=== PATIENT | female | born 1995 | race Two or more races ===

== ENCOUNTER 2019-04-12 22:12 | Inpatient (IN) | payer OTHER ==
[2019-04-12] MEDS ORDERED: Oxytocin/Lactated Ringers 10 UNIT/1,000 ML BAG IV ONE (22:43)
[2019-04-12] MEDS ORDERED: Nalbuphine 10 MG/1 ML Vial IVPUSH PRN (22:56)
[2019-04-12] MEDS ORDERED: Sodium Chloride 0.9% 10 ML Syringe FLUSH PRN (22:56)
[2019-04-12] MEDS ORDERED: Lactated Ringers 1,000 ML IV SCH (23:00)
--- NOTE | 2019-04-12 23:03 | PCM.LDHP ---
L&D History of Present Illness - General Date of Service: 04/12/19 Admit Problem/Dx: Admission Diagnosis/Problem Admission Diagnosis/Problem care Source of Information: Patient History Limitations: Reports: No Limitations - History of Present Illness Introduction:: 23 year old at 41 weeks here in active labor. PNC with me complicated by incarceration. H&P Review of Systems - Review of Systems: Review Of Systems: See Below General: Reports: No Symptoms HEENT: Reports: No Symptoms Pulmonary: Reports: No Symptoms Cardiovascular: Reports: No Symptoms Gastrointestinal: Reports: No Symptoms Genitourinary: Reports: No Symptoms Musculoskeletal: Reports: No Symptoms Skin: Reports: No Symptoms Psychiatric: Reports: No Symptoms Neurological: Reports: No Symptoms Hematologic/Lymphatic: Reports: No Symptoms Immunologic: Reports: No Symptoms L&D Exam - Exam Exam: See Below - OB Specific Contraction Intensity: Strong Movement: Active Heart Tones: Present Heart Rate (FHR) Variability: Moderate (6-25 bmp) Presentation: Vertex - Dumont Score Dumont Score Cervix Position: Midposition Dmuont Score Consistency: Soft Dumont Score Effacement: >80% Dumont Score Infant's Station: -2 - Exam General: Alert, Oriented HEENT: PERRLA, Conjunctiva Clear, EACs Clear, EOMI, Hearing Intact, Mucosa Moist & [place], Nares Patent, Normal Nasal Septum, Posterior Pharynx Clear, TMs Clear Neck: Supple, Trachea Midline Lungs: Clear to Auscultation, Normal Respiratory Effort Cardiovascular: Regular Rate, Regular Rhythm GI/Abdominal Exam: Normal Bowel Sounds, Soft, Non-Tender, No Organomegaly, No Distention, No Abnormal Bruit, No Mass, Pelvis Stable Genitourinary: Normal external exam, Normal bimanual exam, Normal speculum exam Back Exam: Normal Inspection, Full Range of Motion Extremities: Normal Inspection, Normal Range of Motion, Non-Tender, No Pedal Edema, Normal Capillary Refill Skin: Warm, Dry, Intact Neurological: Cranial Nerves Intact, Reflexes Equal Bilateral Psychiatric: Alert, Normal Affect, Normal Mood Problem List Initiated/Reviewed/Updated: Yes Orders Last 24hrs: Active Orders 24 hr Category Date Time Status Patient Status Manage Transfer [TRANSFER] Routine ADT 04/12/19 22:57 Ordered Activity as Tolerated [RC] PFP Care 04/12/19 22:56 Active Communication Order [RC] ASDIRECTED Care 04/12/19 22:56 Active Heart Tones [RC] ASDIRECTED Care 04/12/19 22:56 Active Non Stress Test [RC] PER UNIT ROUTINE Care 04/12/19 22:56 Active Notify Provider [RC] PFP Care 04/12/19 22:56 Active Notify Provider [RC] PRN Care 04/12/19 22:56 Active Peripheral IV Care [RC] . DIRECTED Care 04/12/19 22:56 Active Vital Signs [RC] PER UNIT ROUTINE Care 04/12/19 22:56 Active RAPID PLASMA REAGIN,RPR [CHEM] Routine Lab 04/12/19 22:56 Ordered Lactated Ringers [Ringers, Lactated] 1,000 ml Med 04/12/19 23:00 Ordered IV ASDIRECTED Nalbuphine [Nubain] Med 04/12/19 22:56 Ordered 10 mg IVPUSH Q2H PRN Sodium Chloride 0.9% [Saline Flush] Med 04/12/19 22:56 Ordered 10 ml FLUSH ASDIRECTED PRN Electronic Heart Tones Ext w TOCO [WOMSER] Oth 04/12/19 22:56 Ordered Routine Electronic Heart Tones Internal [WOMSER] Per Unit Oth 04/12/19 22:56 Ordered Routine Peripheral IV Insertion Adult [OM.PC] Routine Oth 04/12/19 22:56 Ordered Resuscitation Status Routine Resus Stat 04/12/19 22:56 Ordered Medication Orders Lactated Ringer's (Ringers, Lactated) 1,000 mls @ 100 mls/hr IV ASDIRECTED JULIETTE Nalbuphine HCl (Nubain) 10 mg IVPUSH Q2H PRN PRN Reason: Pain Sodium Chloride (Saline Flush) 10 ml FLUSH ASDIRECTED PRN PRN Reason: Keep Vein Open Assessment/Plan Comment:: Term labor with rapid
--- NOTE | 2019-04-12 23:09 | PCM.SN ---
- Free Text/Narrative Note: Stage I - Patient presented in active labor. Progressed to complete. Stage II - of viable female, weight 3810g, APGARS 8/9 at 2242. Head delivered in controlled manner over intact perineum. Mild shoulder dystocia resolved with [place]. To maternal abdomen. Cord clamped and cut. Cord blood collected. STage III - of intact placenta. 3vc. No laceration. EBL 150
[2019-04-13] MEDS ORDERED: Methylergonovine 0.2 MG/1 ML Amp IM ONE (00:50)
[2019-04-13] MEDS ORDERED: Methylergonovine 0.2 MG/1 ML Amp ONE (00:51)
[2019-04-13] MEDS ORDERED: Witch Hazel Medicated Pads 40/Jar TOP PRN (01:05)
[2019-04-13] MEDS: Ibuprofen 600 MG Tab PO PRN ×4 (01:29→21:25)
[2019-04-13] MEDS ORDERED: Oxytocin/Lactated Ringers 10 UNIT/1,000 ML BAG IV SCH (02:45)
[2019-04-13] MEDS: Docusate Sodium 100 MG Cap PO PRN (11:46)
[2019-04-14] MEDS: Ibuprofen 600 MG Tab PO PRN ×2 (03:33→09:59)
--- NOTE | 2019-04-14 07:15 | PCM.DCSUM1 ---
Discharge Summary - Hospital Course Diagnosis: Stroke: No - Discharge Data Discharge Date: 04/14/19 Discharge Disposition: Home, Self-Care 01 Condition: Good - Referral to Home Health Primary Care Physician: Juuj Darling MD - Patient Instructions Diet: Usual Diet as Tolerated Activity: No Strenuous Activities Driving: May Drive Today Showering/Bathing: May Shower Wound/Incision Care: Keep Operative Site/Wound Site Clean and Dry Notify Provider of: Fever - Discharge Plan *PRESCRIPTION DRUG MONITORING PROGRAM REVIEWED*: No *COPY OF PRESCRIPTION DRUG MONITORING REPORT IN PATIENT SONIA: No Home Medications: Home Meds Docusate Sodium [Colace] 100 mg PO BID PRN 04/13/19 [History] Ferrous Sulfate [Iron] 325 mg PO BID 04/13/19 [History] PNV95/Ferrous Fumarate/FA [ Tablet] 04/13/19 [History] Referrals: Juju Darling MD [Primary Care Provider] - (2 weeks) - Discharge Summary/Plan Comment DC Time >30 min.: No - General Info Date of Service: 04/14/19 Functional Status: Reports: Pain Controlled - Review of Systems General: Reports: No Symptoms HEENT: Reports: No Symptoms Pulmonary: Reports: No Symptoms Cardiovascular: Reports: No Symptoms Gastrointestinal: Reports: No Symptoms Genitourinary: Reports: No Symptoms Musculoskeletal: Reports: No Symptoms Skin: Reports: No Symptoms Neurological: Reports: No Symptoms Psychiatric: Reports: No Symptoms - Patient Data Vitals - Most Recent: Last Vital Signs Temp 36.4 C 04/14/19 02:18 Pulse 74 04/14/19 02:18 Resp 15 04/14/19 02:18 BP 108/71 04/14/19 02:18 Pulse Ox 95 04/14/19 02:18 Weight - Most Recent: 87.997 kg I&O - Last 24 hours: Intake & Output 04/13/19 04/14/19 04/14/19 22:59 06:59 14:59 Intake Total 240 Balance 240 Med Orders - Current: Current Medications Docusate Sodium (Colace) 100 mg PO BID PRN PRN Reason: Constipation Last Admin: 04/13/19 11:46 Dose: 100 mg Oxytocin/Lactated Ringer's (Pitocin In Lr 10 Units/1,000 Ml) 10 unit in 1,000 mls @ 500 mls/hr IV .CONTINUOUS JULIETTE Ibuprofen (Motrin) 600 mg PO Q6H PRN PRN Reason: Mild pain or fever Last Admin: 04/14/19 03:33 Dose: 600 mg Witch Egmini (Tucks) 1 pad TOP ASDIRECTED PRN PRN Reason: Pain Discontinued Medications Oxytocin/Lactated Ringer's (Pitocin In Lr 10 Units/1,000 Ml) Confirm Administered Dose 10 unit in 1,000 mls @ as directed IV .STK-MED ONE Stop: 04/12/19 22:44 Last Admin: 04/12/19 22:45 Dose: 500 mls/hr Lactated Ringer's (Ringers, Lactated) 1,000 mls @ 100 mls/hr IV ASDIRECTED [facility] Methylergonovine Maleate (Methergine) 0.2 mg IM ONETIME ONE Stop: 04/13/19 00:51 Last Admin: 04/13/19 00:55 Dose: 0.2 mg Methylergonovine Maleate (Methergine) Confirm Administered Dose 0.2 mg .ROUTE .STK-MED ONE Stop: 04/13/19 00:52 Last Admin: 04/13/19 01:02 Dose: Not Given Nalbuphine HCl (Nubain) 10 mg IVPUSH Q2H PRN PRN Reason: Pain Last Admin: 04/12/19 22:35 Dose: 10 mg Sodium Chloride (Saline Flush) 10 ml FLUSH ASDIRECTED PRN PRN Reason: Keep Vein Open - Exam General: Reports: Alert, Oriented HEENT: Reports: Pupils Equal, Pupils Reactive, EOMI, Mucous Membr. Moist/Peerless Neck: Reports: Supple Lungs: Reports: Clear to Auscultation, Normal Respiratory Effort Cardiovascular: Reports: Regular Rate, Regular Rhythm GI/Abdominal Exam: Normal Bowel Sounds, Soft, Non-Tender, No Organomegaly, No Distention, No Abnormal Bruit, No Mass, Pelvis Stable Rectal (Female) Exam: Normal Exam, Normal Rectal Tone Back Exam: Reports: Normal Inspection, Full Range of Motion Extremities: Normal Inspection, Normal Range of Motion, Non-Tender, No Pedal Edema, Normal Capillary Refill Neurological: Reports: No New Focal Deficit Psy/Mental Status: Reports: Alert, Normal Affect, Normal Mood
[2019-04-14] MEDS: Docusate Sodium 100 MG Cap PO PRN (10:01)
== END 2019-04-14 12:00 | disposition home or self-care (01) | DRG 807 ==
LOC: JD.OBCHECK 22:12 → JD.OB 22:42
PROVIDERS: ADMIT Obstetrics & Gynecology; ATTEND Obstetrics & Gynecology
PROC: 10E0XZZ Delivery of Products of Conception, External Approach (ICD-10-PCS; principal; 2019-04-12)
PROC: 10907ZC Drainage of Amniotic Fluid, Therapeutic from Products of Conception, Via Natural or Artificial Opening (ICD-10-PCS; 2019-04-12)
DX: O48.0 Post-term pregnancy (principal); Z37.0 Single live birth; O66.0 Obstructed labor due to shoulder dystocia; Z3A.41 41 weeks gestation of pregnancy
CPT/HCPCS: 36415; 59025; 59409; 86592; A9270-GY; J2210; J2300; J2590